=== PATIENT | female | born 1950 | race Caucasian/White ===

== ENCOUNTER → 2017-08-08 | Outpatient (CLI) | payer MEDICARE, OTHER ==
[~2017-08-08] MED LIST: ALBU8.5H12 IH; ASPI81TA94 PO; CALC-515 PO; CELE-1 PO; CLI150 PO; DIA10 PO; DIA2 PO; DIAZ-311 PO; DIAZ2TAB72 PO; DICY-42 PO; DILAUDID; DIPH-740 PO; DOC100 PO; DUL20 PO; FEN100TPT TD; FENT-15 TD; FENT-21 TD; FENT-23 TD; FENTANYL PATCH TD; HEART MED; HYDR-393 PO; HYDR-4305 PO; HYDR-4309 PO; HYDR2TAB41 PO; HYDR2TAB74 PO; IBUP600T22 PO; IRO150 PO; LEVO250T55 PO; LISI5TAB25 PO; LOR10/325 PO; LOR5/325 PO; LOR7.5/325 PO; LORCET PO; LOSA-57 PO; MEP50 PO; MEPE50TA29 PO; METH4TAB57 PO; MIR; MOM PO; NITR-105 PO; OMEP-137 PO; OXYC-865 PO; PAN40 PO; PER PO; POTA10CA61 PO; POTA20TA85 PO; PRE20 PO; PRO25 PO; PROM-100 PO; PROM25S PR; PROM25SU9 RC; RIV10 PO; TEM15 PO; TEMA-55 PO; [UNRECOGNIZED DRUG - OTHER] PO; [UNRECOGNIZED DRUG - OTHER] PO
== END ==
LOC: LAB 09:14
PROVIDERS: ATTEND Nurse Practitioner Family
DX: R71.0 Precipitous drop in hematocrit (principal); R71.8 Other abnormality of red blood cells
CPT/HCPCS: 36415; 82607; 82728; 82746; 83550; 84466

== ENCOUNTER → 2017-11-03 | Outpatient (CLI) | payer MEDICARE, OTHER | LOC: LAB 08:12 | PROVIDERS: ATTEND Nurse Practitioner Family | DX: J39.2 Other diseases of pharynx (principal); R13.10 Dysphagia, unspecified | CPT/HCPCS: 36415; 84439; 84443; 85027 ==

== ENCOUNTER → 2017-11-16 | Outpatient (CLI) | payer MEDICARE, OTHER ==
--- NOTE | 2017-11-16 16:37 | RADIOLOGY IMAGING REPORT ---
FACILITY: [facility] PATIENT NAME: Liane Champagne : 1950 MR: [id number] V: [id number] EXAM DATE: ORDERING PHYSICIAN: MONTY BOO TECHNOLOGIST: Location: [facility] Patient: Liane Champagne : 1950 Visit/Account:[id number] Date of Sevice: 11/16/2017 THYROID HISTORY: History of thyroid cysts COMPARISON: March 30, 2011 FINDINGS: SIZE: Right lobe: Surgically removed cm Left lobe: 3.7 x 1.8 x 1.7 cm Isthmus: 3 mm PARENCHYMA: Heterogeneous NODULES: * Left lobe: * In the superior pole the left lobe there is a 1.4 x 1.3 x 0.9 cm well-circumscribed hypoechoic nod ule this previously measured 1.1 x 1.2 x 1.6 cm and actually appears smaller when compared the prior study. There are scattered small subcentimeter hypoechoic nodules also noted in the left lobe. Isthmus: * None discrete. VASCULARITY: Left lobe is mildly hypervascular ADDITIONAL FINDINGS: None. IMPRESSION: Postsurgical changes from a right hemithyroidectomy There are multiple small subcentimeter nodules within the left lobe. In the superior pole the left l obe there is a 1.4 x 1.3 x 0.9 cm well-circumscribed hypoechoic nodule fracture appears slightly smal ler when compared to the prior study. REFERENCE: 2015 [place] [employer] Management Guidelines for Adult Patients with Thyroid Nodules and D ifferentiated Thyroid Cancer: The [place] [employer] Guidelines Task Force on Thyroid Nodul es and Differentiated Thyroid Cancer. SONOGRAPHIC PATTERNS: * Benign: Purely cystic nodules (no solid component); estimated risk of malignancy <1 percent; no bi opsy recommended. * Very Low Suspicion: Spongiform or partially cystic nodules without any of the sonographic features described in low, intermediate, or high suspicion patterns; estimated risk of malignancy <3 percent; consider FNA at > 2 cm (Observation without FNA is also a reasonable option). * Low Suspicion: Isoechoic or hyperechoic solid nodule, or partially cystic nodule with eccentric so lid areas, without microcalcification, irregular margin or ETE (extra-thyroidal extension), or taller than wide shape; estimated risk of malignancy 5-10 percent; recommend FNA at >1.5 cm. * Intermediate Suspicion: Hypoechoic solid nodule with smooth margins without microcalcifications, E TE (extra-thyroidal extension), or taller than wide shape; estimated risk of malignancy 10-20 percent ; recommend FNA at > 1 cm. * High Suspicion: Solid hypoechoic nodule or solid hypoechoic component of a partially cystic nodule with one or more of the following features: irregular margins (infiltrative, microlobulated), microc alcifications, taller than wide shape, rim calcifications with small extrusive soft tissue component, evidence of ETE (extra-thyroidal extension); estimated risk of malignancy >70-90 percent; recommend FNA at > 1 cm. NOTES: * Although a sonographically suspicious subcentimeter thyroid nodule without evidence of extrathyroi dominick extension or sonographically suspicious lymph nodes may be observed with close sonographic follow -up rather than pursuing immediate FNA, patient age and preference may modify decision-making. A > 50% interval increase in nodule volume and/or development of new suspicious sonographic features are felt to be a valid reasons for potential re-aspiration of a nodule previously shown to have benig n FNA cytology. Report Dictated By: Afia Duke MD at 11/16/2017 4:27 PM Report E-Signed By: Afia Duke MD at 11/16/2017 4:32 PM WSN:[email or web address]
== END ==
LOC: US 01:30
PROVIDERS: ATTEND Nurse Practitioner Family
DX: E04.2 Nontoxic multinodular goiter (principal); E89.0 Postprocedural hypothyroidism
CPT/HCPCS: 76536

== ENCOUNTER 2017-12-20 18:52 | Emergency (ER) | payer MEDICARE, OTHER ==
[~2017-12-20 18:52] MED LIST changes: +LOSA50TA72 PO
--- NOTE | 2017-12-20 19:04 | ER Report ---
History and Physical Time Seen By MD: 19:03 Hx. of Stated Complaint: PT REPORTS HIGH BP AT HOME (200/108), CALLED PCP AND TOLD TO COME TO ED, PT REPORT ESPINAL/EARS RINGING/FLUSHED/LIPS TINGLING AND "JUST DOESN'T FEEL GOOD" HPI/ROS This is a 67-year-old female with multiple medical problems who presents to the emergency department with a mild headache, nausea, and high blood pressure. As far as the headache, it is not the worst headache of her life. She has no fever or chills. She denies meningismus. She thinks her nausea is being caused by her headache. She is worried about her high blood pressure. She states that she did take her blood pressure medication as prescribed already today. She does take chronic opiates however, and has not taken her opiates today because she has been feeling nauseous. She also states that earlier today she took off her fentanyl patch to take a bath and did not replace it. She also reports some mild chest discomfort since this morning. She denies abdominal pain. No vision changes. Remainder of the 14 system rev: Yes Allergies: Coded Allergies: Penicillins (Verified Allergy, Severe, HIVES, DIF BREATHING, 12/20/17) ketorolac (Verified Allergy, Severe, STOMACH PAIN, 12/20/17) prochlorperazine (Verified Allergy, Severe, MUSCLE SPASMS IN FACE, 12/20/17 ) promethazine (Verified Allergy, Severe, "MAKES ME GO CRAZY', 12/20/17) Sulfa (Sulfonamide Antibiotics) (Verified Allergy, Mild, HIVES, 12/20/17) ondansetron (Verified Adverse Reaction, Mild, HEADACHE, 12/20/17) Home Meds Reported Medications Oxycodone Hcl 10 Mg Tab (OXYCODONE HCL 10 MG TAB) 10 Mg Tablet, 10 MG PO Q4D Y for PAIN, TAB 12/20/17 Losartan Potassium (LOSARTAN POTASSIUM) 50 Mg Tablet, 50 MG PO QDAY 12/14/17 Aspirin (ASPIRIN) 81 Mg Tab.chew, 81 MG PO QDAY, TAB.CHEW 04/20/17 Fentanyl 100 Mcg Patch (FENTANYL 100 MCG PATCH) 1 Each Patch.td72, 50 MCG TD Q72H, PATCH.72H 02/19/17 Discontinued Reported Medications Acetaminophen/Hydrocodone (HYDROCODON-ACETAMINOPHN 10-325) 1 Each Tab, 1-2 TAB PO BID, #120 01/12/16 [Lorstatin] No Conflict Check, 50 MG PO DAILY 03/21/17 Discontinued Scripts Dicyclomine Hcl (BENTYL) 10 Mg Capsule, 20 MG PO QID, #20 CAPSULE 0 Refills Prov:SANGEETHA MANZO MD 03/21/17 Reviewed Nurses Notes: Yes Old Medical Records Reviewed: Yes Hx Smoking: No Smoking Status: Never Smoker Exposure to Second Hand Smoke?: No Hx Substance Use Disorder: No Hx Alcohol Use: No Constitutional Vital Sign - Last 24 Hours 12/20/17 12/20/17 12/20/17 12/20/17 18:57 19:00 19:15 19:30 Temp 98.7 Pulse 85 84 78 81 Resp 16 10 14 B/P (MAP) 210/145 197/122 (147) Pulse Ox 92 95 93 94 O2 Delivery Room Air 12/20/17 12/20/17 12/20/17 12/20/17 19:45 20:00 20:15 20:30 Pulse 65 79 78 131 Resp 13 20 25 14 B/P (MAP) 203/130 (154) 210/96 (134) Pulse Ox 93 94 96 97 12/20/17 12/20/17 12/20/17 12/20/17 20:41 20:45 21:00 21:15 Pulse 133 132 Resp 16 24 22 B/P (MAP) 182/147 (159) Pulse Ox 97 97 97 O2 Flow Rate 2.0 12/20/17 12/20/17 12/20/17 21:23 21:30 21:45 Pulse 112 112 Resp 22 28 B/P (MAP) 183/112 (135) 180/115 (136) Pulse Ox 97 97 Intake and Output 12/20/17 12/20/17 12/21/17 15:00 23:00 07:00 Intake Total 500 ml Balance 500 ml Physical Exam General Appearance: The patient is alert, has no immediate need for airway protection and no current signs of toxicity. Eyes: Pupils equal and round no injection. Respiratory: Chest is non tender, lungs are clear to auscultation. Cardiac: regular rate and rhythm Gastrointestinal: Abdomen is soft and non tender, no masses, bowel sounds normal. Neck: Neck is supple and non tender. Extremities have full range of motion and are non tender. Skin: No rashes or lesions. DIFFERENTIAL DIAGNOSIS: After history and physical exam differential diagnosis was considered for chest pain including but not limited to myocardial ischemia, pericarditis pulmonary embolus, chest wall pain, pleural inflammation and pulmonary infectious causes. headache including but not limited to subarachnoid hemorrhage, migraine headache, tension headache and infectious causes such as meningitis, pharyngitis and sinusitis. Medical Decision Making Data Points Result Diagram: 12/20/17193512/20/171935 Laboratory Hematology Test 12/20/17 19:36 12/20/17 20:06 Red Blood Count 4.58 M/uL (4.17-5.56) Mean Corpuscular Volume 84.8 fL (80.0-96.0) Mean Corpuscular Hemoglobin 30.7 pg (26.0-33.0) Mean Corpuscular Hemoglobin Concent 36.1 g/dL (32.0-36.0) Red Cell Distribution Width 15.2 % (11.5-14.5) Mean Platelet Volume 8.7 fL (7.2-11.1) Neutrophils (%) (Auto) 76.9 % (39.4-72.5) Lymphocytes (%) (Auto) 16.5 % (17.6-49.6) Monocytes (%) (Auto) 6.1 % (4.1-12.4) Eosinophils (%) (Auto) 0.0 % (0.4-6.7) Basophils (%) (Auto) 0.5 % (0.3-1.4) Nucleated RBC Relative Count (auto) 0.0 /100WBC Neutrophils # (Auto) 7.1 K/uL (2.0-7.4) Lymphocytes # (Auto) 1.5 K/uL (1.3-3.6) Monocytes # (Auto) 0.6 K/uL (0.3-1.0) Eosinophils # (Auto) 0.0 K/uL (0.0-0.5) Basophils # (Auto) 0.0 K/uL (0.0-0.1) Nucleated RBC Absolute Count (auto) 0.00 K/uL Sodium Level 140 mmol/L (137-145) Potassium Level 3.1 mmol/L (3.5-5.0) Chloride Level 102 mmol/L (98-107) Carbon Dioxide Level 25 mmol/L (22-31) Blood Urea Nitrogen 15 mg/dl (7-18) Creatinine 0.80 mg/dl (0.52-1.04) Glomerular Filtration Rate Calc > 60.0 Random Glucose 112 mg/dl (75-110) Calcium Level 9.5 mg/dl (8.4-10.2) Magnesium Level 2.2 mg/dl (1.7-2.2) Total Bilirubin 2.3 mg/dl (0.2-1.3) Aspartate Amino Transf (AST/SGOT) 23 U/L (0-35) Alanine Aminotransferase (ALT/SGPT) 20 U/L (0-56) Alkaline Phosphatase 105 U/L (0-126) Troponin I < 0.012 ng/ml Total Protein 6.9 g/dl (6.3-8.2) Albumin 4.0 g/dl (3.5-5.0) Urine Color Yellow Urine Clarity Clear Urine pH 6.0 pH (4.8-9.5) Urine Specific [place] 1.018 Urine Protein Negative mg/dL (NEGATIVE) Urine Glucose (UA) Negative mg/dL (NEGATIVE) Urine Ketones Negative mg/dL (NEGATIVE) Urine Blood Small (NEGATIVE) Urine Nitrite Negative (NEGATIVE) Urine Bilirubin Negative (NEGATIVE) Urine Urobilinogen 2.0 mg/dL (0.2-1.9) Urine Leukocyte Esterase Small (NEGATIVE) Urine RBC 3 /HPF (0-2/HPF) Urine WBC 13 /HPF (0-5/HPF) Urine Squamous Epithelial Cells Many /LPF (</=FEW) Urine Bacteria Few /HPF (NONE-FEW) Urine Mucus None /HPF (NONE-FEW) Chemistry Test 12/20/17 19:36 12/20/17 20:06 White Blood Count 9.2 k/uL (4.5-11.0) Red Blood Count 4.58 M/uL (4.17-5.56) Hemoglobin 14.0 g/dL (12.0-16.0) Hematocrit 38.8 % (34.0-47.0) Mean Corpuscular Volume 84.8 fL (80.0-96.0) Mean Corpuscular Hemoglobin 30.7 pg (26.0-33.0) Mean Corpuscular Hemoglobin Concent 36.1 g/dL (32.0-36.0) Red Cell Distribution Width 15.2 % (11.5-14.5) Platelet Count 239 K/uL (150-450) Mean Platelet Volume 8.7 fL (7.2-11.1) Neutrophils (%) (Auto) 76.9 % (39.4-72.5) Lymphocytes (%) (Auto) 16.5 % (17.6-49.6) Monocytes (%) (Auto) 6.1 % (4.1-12.4) Eosinophils (%) (Auto) 0.0 % (0.4-6.7) Basophils (%) (Auto) 0.5 % (0.3-1.4) Nucleated RBC Relative Count (auto) 0.0 /100WBC Neutrophils # (Auto) 7.1 K/uL (2.0-7.4) Lymphocytes # (Auto) 1.5 K/uL (1.3-3.6) Monocytes # (Auto) 0.6 K/uL (0.3-1.0) Eosinophils # (Auto) 0.0 K/uL (0.0-0.5) Basophils # (Auto) 0.0 K/uL (0.0-0.1) Nucleated RBC Absolute Count (auto) 0.00 K/uL Glomerular Filtration Rate Calc > 60.0 Calcium Level 9.5 mg/dl (8.4-10.2) Magnesium Level 2.2 mg/dl (1.7-2.2) Total Bilirubin 2.3 mg/dl (0.2-1.3) Aspartate Amino Transf (AST/SGOT) 23 U/L (0-35) Alanine Aminotransferase (ALT/SGPT) 20 U/L (0-56) Alkaline Phosphatase 105 U/L (0-126) Troponin I < 0.012 ng/ml Total Protein 6.9 g/dl (6.3-8.2) Albumin 4.0 g/dl (3.5-5.0) Urine Color Yellow Urine Clarity Clear Urine pH 6.0 pH (4.8-9.5) Urine Specific [place] 1.018 Urine Protein Negative mg/dL (NEGATIVE) Urine Glucose (UA) Negative mg/dL (NEGATIVE) Urine Ketones Negative mg/dL (NEGATIVE) Urine Blood Small (NEGATIVE) Urine Nitrite Negative (NEGATIVE) Urine Bilirubin Negative (NEGATIVE) Urine Urobilinogen 2.0 mg/dL (0.2-1.9) Urine Leukocyte Esterase Small (NEGATIVE) Urine RBC 3 /HPF (0-2/HPF) Urine WBC 13 /HPF (0-5/HPF) Urine Squamous Epithelial Cells Many /LPF (</=FEW) Urine Bacteria Few /HPF (NONE-FEW) Urine Mucus None /HPF (NONE-FEW) Urinalysis Test 12/20/17 20:06 Urine Color Yellow Urine Clarity Clear Urine pH 6.0 pH (4.8-9.5) Urine Specific [place] 1.018 Urine Protein Negative mg/dL (NEGATIVE) Urine Glucose (UA) Negative mg/dL (NEGATIVE) Urine Ketones Negative mg/dL (NEGATIVE) Urine Blood Small (NEGATIVE) Urine Nitrite Negative (NEGATIVE) Urine Bilirubin Negative (NEGATIVE) Urine Urobilinogen 2.0 mg/dL (0.2-1.9) Urine Leukocyte Esterase Small (NEGATIVE) Urine RBC 3 /HPF (0-2/HPF) Urine WBC 13 /HPF (0-5/HPF) Urine Squamous Epithelial Cells Many /LPF (</=FEW) Urine Bacteria Few /HPF (NONE-FEW) Urine Mucus None /HPF (NONE-FEW) EKG/Imaging EKG Interpretation 12 lead EKG: Rhythm: normal sinus rhythm [place]: normal QRS: normal ST segments: non specific T wave changes Imaging X-ray: CXR was obtained. I viewed the images myself on the PACS system. My interpretation of the images is: no new changes, no infiltrates or pulmonary edema. The radiologist interpretation had no clinically significant variation from this interpretation. ED Course/Re-evaluation ED Course Physical 67-year-old female who presented to the emergency department with a myriad of vague complaints. She complained of a mild headache without fever or meningismus. Also complained of worrisome high blood pressure in spite of taking her blood pressure meds. Also complained of nausea and some mild chest discomfort that his been constant for almost 18 hours. As far as her headache is not the worst of life. She has no fever or meningismus. Her headache could be from not taking her opiate medication today as well as self DC her fentanyl patch and not replacing it. I think that is the same reason that she is having an elevated blood pressure in spite of taking her blood pressure medicines today. I think she is experiencing some rebound from not taking her chronic narcotics today. I wanted to give her antiemetics and NSAIDs for her headache, but the patient refused. She became extremely anxious during her stay in the emergency department so I gave her some Valium by mouth to try to help her with her anxiety. I also gave her a milligram of Ativan IV for her nausea given the fact that she is allergic to all of the anti-medic medications. Her nausea improved. She became tachycardic after she was given Decadron to try to help her with her headache and the hydralazine to try to help her with her elevated blood pressure. Her tachycardia and anxiety improved slightly with Ativan and Valium, but the patient remained extremely anxious throughout her stay. Her nausea did improve. She has no abdominal tenderness to palpation, and I do not think she needs any abdominal imaging. I also gave her a dose of clonidine to try to help her both with her blood pressure as well as her seemingly withdraw from opiates. At this point I do not think there is anything else we can do for her in the emergency department. Recommended that she go home and take her home medications that she is prescribed. She is amenable to that plan. She no longer has chest pain or nausea. She will follow-up with her primary care doctor tomorrow Decision to Disposition Date: Dec 20, 2017 Decision to Disposition Time: 22:21 Depart Departure Latest Vital Signs Vital Signs Date Time Temp Pulse Resp B/P (MAP) Pulse Ox O2 Delivery O2 Flow Rate FiO2 12/20/17 21:45 112 28 97 12/20/17 21:30 180/115 (136) 12/20/17 20:41 2.0 12/20/17 18:57 98.7 Room Air Impression: Primary Impression: Nausea and vomiting Additional Impressions: Headache Hypertension Condition: Improved Disposition: HOME OR SELF-CARE Referrals: MONTY BOO (PCP) Patient Instructions: Acute Headache (ED), Acute Nausea and Vomiting (ED), Chronic Hypertension (ED) Problem Qualifiers Primary Impression: Nausea and vomiting Vomiting type: unspecified Vomiting Intractability: non-intractable Qualified Codes: R11.2 - Nausea with vomiting, unspecified Additional Impressions: Headache Headache type: tension-type Headache chronicity pattern: unspecified pattern Intractability: not intractable Qualified Codes: G44.209 - Tension- type headache, unspecified, not intractable Hypertension Hypertension type: unspecified Qualified Codes: I10 - Essential (primary) hypertension TAMI MARIE MD Dec 20, 2017 19:04
[2017-12-20] MEDS ORDERED: OXYC10TA67 PO (19:05)
[2017-12-20] MEDS ORDERED: NS(*) 0.9% 500 ML BAG 500 ML IV ONE (19:45)
[2017-12-20] MEDS ORDERED: ASPIRIN 81 MG CHEW PO ONE (19:45)
[2017-12-20] MEDS ORDERED: DEXAMETHASONE SOD PHOS 10MG/ML IVP ONE (19:45)
[2017-12-20] MEDS ORDERED: hydrALAZINE HCL 20 MG/ML VIAL IVP ONE (20:00)
--- NOTE | 2017-12-20 20:10 | EKG ---
[facility] PATIENT NAME: MELISA AHUJA : [id number] MR: [id number] V: [id number] EXAM DATE: ORDERING PHYSICIAN: TAMI MARIE TECHNOLOGIST: JORGE Test Reason : HIGH BP Blood Pressure : / mmHG Vent. Rate : 078 BPM Atrial Rate : 078 BPM P-R Int : 178 ms QRS Dur : 080 ms QT Int : 398 ms P-R-T Axes : 022 012 030 degrees QTc Int : 453 ms Sinus rhythm with premature atrial complexes Anterior infarct (cited on or before 20-DEC-2017) Abnormal ECG When compared with ECG of 27-MAR-2017 18:47, No significant change was found Confirmed by SB MOYA ([id number]) on 12/21/2017 11:17:34 AM Referred By: Confirmed By:SB MOYA
[2017-12-20 20:19] LABS: PLATELET COUNT, AUTOMATED 239 K/uL (150-450)
[2017-12-20] MEDS ORDERED: DIAZEPAM 5 MG TAB PO ONE (20:25)
[2017-12-20] MEDS ORDERED: POTASSIUM CHL 20 MEQ TABCR PO ONE (20:40)
--- NOTE | 2017-12-20 21:00 | EKG ---
FACILITY: PATIENT NAME: MELISA AHUJA : [id number] MR: [id number] V: [id number] EXAM DATE: ORDERING PHYSICIAN: TAMI MARIE TECHNOLOGIST: JORGE Test Reason : TACHYCARDIA Blood Pressure : / mmHG Vent. Rate : 131 BPM Atrial Rate : 138 BPM P-R Int : 224 ms QRS Dur : 080 ms QT Int : 276 ms P-R-T Axes : 000 029 030 degrees QTc Int : 407 ms Multifocal atrial tachycardia with 1st degree AV block with premature atrial complexes Anteroseptal infarct , age undetermined Abnormal ECG Now with multifocal atrial tachycardia Confirmed by SB MOYA ([id number]) on 12/21/2017 11:26:44 AM Referred By: FRANK Confirmed By:SB MOYA
[2017-12-20] MEDS ORDERED: LORazepam 2 MG/ML VIAL IVP ONE (21:10)
[2017-12-20] MEDS ORDERED: cloNIDine HCL 0.1 MG TAB PO ONE (21:35)
[2017-12-20 22:00] VITALS: BP 196/112
--- NOTE | 2017-12-20 22:26 | RADIOLOGY IMAGING REPORT ---
[place] [facility] [place] NAME[place] Liane Champagne : 1950 MR: [id number] V: [id number] EXAM DATE: ORDERING PHYSICIAN: TAMI MARIE TECHNOLOGIST: Location: [facility] [place] Patient: Liane Champagne : 1950 Visit/Account:[id number] Date of Sevice: 12/20/2017 EXAMINATION: Portable AP Chest HISTORY: Chest pain. COMPARISON: 03/27/2017. FINDINGS: The lungs are clear. No focal consolidation or pleural effusion. No pneumothorax. Normal cardiomedi astinal silhouette, with normal heart size and pulmonary vascularity. No acute osseous findings. There has been resection or resorption of the distal right clavicle with s oft tissue anchors along the right humeral head suggesting prior rotator cuff surgery. IMPRESSION: No evidence of acute cardiopulmonary disease. Report Dictated By: Vaughn Pacheco MD at 12/20/2017 10:20 PM Report E-Signed By: Vaughn Pacheco MD at 12/20/2017 10:23 PM WSN:[id number]
== END 2017-12-20 22:52 | disposition home or self-care (01) ==
LOC: ER 19:22
DX: G44.209 Tension-type headache, unspecified, not intractable (principal); I10 Essential (primary) hypertension; R11.2 Nausea with vomiting, unspecified; R94.31 Abnormal electrocardiogram [ECG] [EKG]
CPT/HCPCS: 71045; 81001; 83735; 84484; 85025; 93005; 96361; 96374; 96375; 99284; A9270; J0360; J1100; J2060; J7040; 82040; 82247; 82310; 82374; 82435; 82565; 82947; 84075; 84132; 84155; 84295; 84450; 84460; 84520

== ENCOUNTER → 2018-01-02 | Outpatient (CLI) | payer MEDICARE, OTHER ==
[~2018-01-02] MED LIST changes: +OXYC10TA67 PO
--- NOTE | 2018-01-02 15:20 | RADIOLOGY IMAGING REPORT ---
FACILITY: [facility] PATIENT NAME: Liane Champagne : 1950 MR: [id number] V: [id number] EXAM DATE: [id number] ORDERING PHYSICIAN: TAMI CLAIRE TECHNOLOGIST: Location: [facility] Patient: Liane Champagne : 1950 Visit/Account:[id number] Date of Sevice: 01/02/2018 EXAMINATION: Abdominal series HISTORY: Small bowel obstruction surgery done 12/25/2017. Pain started yesterday. Bloating and pain. COMPARISON: 03/21/2017. FINDINGS: PA upright view of the chest, AP supine and AP upright views of the abdomen are obtained. Lines/tubes: Surgical clips in the right upper quadrant of the abdomen. Cutaneous margot along the midline of the abdomen. Bowel gas pattern: No evidence of intraperitoneal free air. There are several air-fluid levels withi n loops of bowel. There is gas and a moderate fecal content within the large bowel. No dilated loops of bowel are seen. Soft tissues: Multiple phleboliths in the pelvis. Bony structures: Suture anchors in the right humeral head. Left convex curvature of the lumbar spine . Advanced multilevel disc and facet degenerative changes in the lumbar spine. Chest: Mild subsegmental atelectasis at the lung bases. No pleural effusion. No evidence of pneumoth orax. Pulmonary vascularity is within normal limits. Cardiomediastinal silhouette is within normal li mits. IMPRESSION: Nonspecific bowel gas pattern without evidence of bowel obstruction or intraperitoneal free air. There are several air-fluid levels within nondilated loops of bowel. Report Dictated By: Jian Gonzalez MD at 01/02/2018 3:10 PM Report E-Signed By: Jian Gonzalez MD at 01/02/2018 3:17 PM WSN:[email or web address]
== END ==
LOC: RAD 11:41
PROVIDERS: ATTEND Surgery
DX: R52 Pain, unspecified (principal); R14.0 Abdominal distension (gaseous)
CPT/HCPCS: 74022

== ENCOUNTER → 2018-01-12 | Outpatient (CLI) | payer MEDICARE, OTHER ==
[~2018-01-12] MED LIST changes: +BARIUM SULFATE 176 GM BTL PO ONE; +BARIUM SULFATE 340 GM POWD ONE
--- NOTE | 2018-01-12 15:45 | RADIOLOGY IMAGING REPORT ---
FACILITY: [facility] [place] PATIENT NAME: Liane Champagne : 1950 MR: [id number] V: [id number] EXAM DATE: ORDERING PHYSICIAN: TAMI CLAIRE TECHNOLOGIST: Location: [facility] [place] Patient: Liane Champagne : 1950 Visit/Account:[id number] Date of Sevice: 01/12/2018 UPPER GI W/SMALL BOWEL SERIES Indication: 67-year-old female status post surgery for lysis of adhesions. Upper GI small bowel foll ow-through requested. Procedure: Following an official timeout documenting the patient's name and type of procedure a sing le contrast upper GI with small bowel follow-through was performed in standard fashion. Prior to the procedure a crew scheduler film was obtained. One of the following dose optimization techniques was utilized in the performance of this exam: Autom ated exposure control; adjustment of the mA and/or kV according to the patient's size; or use of an i terative reconstruction technique. Specific details can be referenced in the facility's radiology f luoroscopy exam operational policy. Comparison studies: None Fluoroscopy time: DAP: 2988.9 uGym2 Findings: Light Bulb Replacer film: On the crew scheduler film there are no dilated loops of large or small bowel to suggest ileus or obstruction. Esophagus: Esophagus has normal course and caliber. There is a small hiatal hernia distally. Pharynx: There are no findings of aspiration. Stomach: The stomach is unremarkable. It is not optimally distended. Small bowel: Transit time to the terminal ileum/colon was 5 hours. The small bowel shows shows normal mucosal folds. There are no significantly dilated loops of small bowel. Note that there is filling of the biliary system via retrograde flow suggesting prior sphincterotomy. IMPRESSION: 1. No findings of small bowel obstruction. Transit time from the stomach to the terminal ileum is 5 hours. 2. There are no significantly dilated loops of small bowel. 3. There is a small hiatal hernia. 4. There is retrograde filling of the biliary system suggesting prior sphincterotomy or duodenal helio samina. Report Dictated By: Logan Hart MD at 01/12/2018 3:37 PM Report E-Signed By: Logan Hart MD at 01/12/2018 3:40 PM WSN:[email or web address]
== END ==
LOC: RAD 02:36
PROVIDERS: ATTEND Surgery
DX: K44.9 Diaphragmatic hernia without obstruction or gangrene (principal)
CPT/HCPCS: 74245

== ENCOUNTER → 2018-01-26 | Outpatient (CLI) | payer MEDICARE, OTHER ==
[~2018-01-26] MED LIST changes: -BARIUM SULFATE 176 GM BTL PO ONE; -BARIUM SULFATE 340 GM POWD ONE; +IOPAMIDOL 76% 100 ML INFUS BTL 100 ML ONE
--- NOTE | 2018-01-26 14:39 | RADIOLOGY IMAGING REPORT ---
FACILITY: [facility] [place] PATIENT NAME: Liane Champagne : 1950 MR: [id number] V: [id number] EXAM DATE: ORDERING PHYSICIAN: TAMI CLAIRE TECHNOLOGIST: Location: Patient: Liane Champagne : 1950 Visit/Account:[id number] Date of Sevice: 01/26/2018 ABDOMEN/PELVIS WITH CONTRAST HISTORY: Abdominal pain. History of small bowel obstruction. TECHNIQUE: CT abdomen and pelvis with intravenous contrast. One of the following dose optimization techniques was utilized in the performance of this exam: Autom ated exposure control; adjustment of the mA and/or kV according to the patient's size; or use of an i terative reconstruction technique. Specific details can be referenced in the facility's radiology C T exam operational policy. CONTRAST: 75 mL Isovue-370. COMPARISON: None available FINDINGS: Visualized lung bases: Small hiatal hernia. Otherwise negative. Hepatobiliary: Gallbladder surgically absent. There is pneumobilia which is likely related to prior cholecystectomy or other biliary procedure. Otherwise negative. Spleen: Negative. Adrenals: Negative. Pancreas: Negative. Kidneys/: 1.6 cm cyst within the right kidney. Uterus is surgically absent. Otherwise negative. GI: Negative. No evidence for small bowel obstruction. Appendix is not visualized and likely absen t. Vessels/spaces/nodes: Minimal atherosclerosis within the abdominal aorta. Otherwise negative. Bones/soft tissues: Postsurgical changes within the ventral abdominal midline without visualized com plication. Moderate degenerative changes throughout the visualized lower lumbar spine. IMPRESSION: No acute findings. 2. Incidental/chronic sinus, as above. Report Dictated By: Castro Borges MD at 01/26/2018 2:29 PM Report E-Signed By: Castro Borges MD at 01/26/2018 2:36 PM WSN:[email or web address]
== END ==
LOC: CT 02:59
PROVIDERS: ATTEND Surgery
DX: K44.9 Diaphragmatic hernia without obstruction or gangrene (principal); Z90.49 Acquired absence of other specified parts of digestive tract; N28.1 Cyst of kidney, acquired; Z90.710 Acquired absence of both cervix and uterus; I70.0 Atherosclerosis of aorta; Z98.890 Other specified postprocedural states
CPT/HCPCS: 74177; Q9967

== ENCOUNTER → 2018-05-03 | Outpatient (CLI) | payer MEDICARE, OTHER ==
[~2018-05-03] MED LIST changes: -HYDR-4305 PO; -HYDR-4309 PO; +HYDR-627 PO; +HYDR-653 PO; -IOPAMIDOL 76% 100 ML INFUS BTL 100 ML ONE; -LOSA50TA72 PO; +LOSA50TA74 PO
--- NOTE | 2018-05-04 11:27 | RADIOLOGY IMAGING REPORT ---
FACILITY: [facility] PATIENT NAME: MELISA AHUJA : [id number] MR: [id number] V: [id number] EXAM DATE: [id number] ORDERING PHYSICIAN: MONTY BOO TECHNOLOGIST: Mary Goode PROCEDURE:BILATERAL DIGITAL SCREENING MAMMOGRAM WITH CAD ASSISTED INTERPRETATION & 3D TOMOSYNTHESIS COMPARISON:Prior mammograms 03/03/17, 01/08/13. INDICATIONS:screening FINDINGS: A small amount of fibroglandular tissue is seen throughout the breasts. The parenchymal pattern has remained stable allowing for difference in mammographic technique & patient positioning. There is no evidence of malignant appearing mass, malignant appearing calcifications or other secondary sign of malignancy in either breast. DIAGNOSTIC CATEGORY 1--NEGATIVE. RECOMMENDATIONS: ROUTINE MAMMOGRAM AND CLINICAL EVALUATION. IMPRESSION: BIRADS 1: Negative. No significant abnormality is seen. Dictated by: Afia Duke M.D. on 05/03/2018 at 16:52 Transcribed by: KIERRA on 05/04/2018 at 8:14 Approved by: Afia Duke M.D. on 05/04/2018 at 11:26 [facility]
== END ==
LOC: MAMO 09:21
PROVIDERS: ATTEND Nurse Practitioner Family
DX: I25.10 Atherosclerotic heart disease of native coronary artery without angina pectoris (principal); G14 Postpolio syndrome; I10 Essential (primary) hypertension
CPT/HCPCS: 77063; 77067

== ENCOUNTER → 2018-12-26 | Outpatient (CLI) | payer MEDICARE, OTHER ==
[~2018-12-26] MED LIST changes: -LOSA50TA74 PO; +LOSA50TA80 PO
--- NOTE | 2018-12-26 13:07 | RADIOLOGY IMAGING REPORT ---
FACILITY: [facility] PATIENT NAME: Liane Champagne : 1950 MR: [id number] V: [id number] EXAM DATE: ORDERING PHYSICIAN: ARASELI BAHENA TECHNOLOGIST: Location: [facility] - [place] Patient: Liane Champagne : 1950 Visit/Account:[id number] Date of Sevice: 12/26/2018 L-SPINE 2 OR 3 VIEW HISTORY: Back pain Additional history: None COMPARISON: 07/14/2015 radiographs FINDINGS: There is very minimal levoconvex curvature the lumbar spine which is unchanged. There are no mirian namrata fractures. There is moderate disc space narrowing from L2-3 through L5-S1 with accompanying teodoro ctive endplate hypertrophic changes. This is unchanged at all levels with the exception of L2-3 whic h demonstrates interval progression and interval development of reactive endplate eburnation. A faint round 6 mm sclerotic lesion in the T12 vertebral body on the lateral view is stable and conse quently likely benign.. IMPRESSION: Degenerative disc disease L2-3 through L5-S1 which demonstrates interval progression at the level of L2-3 but is otherwise unchanged from 2016. Report Dictated By: Chandana Robertson MD at 12/26/2018 12:57 PM Report E-Signed By: Chandana Robertson MD at 12/26/2018 1:01 PM WSN:[id number]
== END ==
LOC: RAD 10:39
PROVIDERS: ATTEND Clinical Nurse Specialist Family Health
DX: M43.06 Spondylolysis, lumbar region (principal)
CPT/HCPCS: 72100